=== PATIENT | female | born 1955 | race Caucasian/White ===

== ENCOUNTER 2017-11-13 05:25 | Day surgery (SDC) | payer BC ==
[~2017-11-13] VITALS: Ht 167.6 cm; Wt 54.0 kg
[2017-11-13] MEDS ORDERED: SEVOFLURANE 15 MIN GAS INH ONE (05:26)
[2017-11-13] MEDS ORDERED: ROPIVACAINE 40 MG/20 ML AMP EP ONE (05:26)
[2017-11-13] MEDS ORDERED: fentaNYL CITRATE 250 MCG/5 ML AMP IV ONE (05:26)
[2017-11-13] MEDS ORDERED: ROCURONIUM BROMIDE 10 MG/ML (ZEMURON) IV ONE (05:26)
[2017-11-13] MEDS ORDERED: ROPIVACAINE 0.2% (NAROPIN) PF SOLUTION 100 ML BOTTLE EP ONE (05:26)
[2017-11-13] MEDS ORDERED: ONDANSETRON HCL 4 MG/2 ML VIAL IVP ONE (05:26)
[2017-11-13] MEDS ORDERED: PROPOFOL 200MG/ 20ML VIAL (DIPRIVAN) IV ONE (05:26)
[2017-11-13] MEDS ORDERED: CEFAZOLIN 1 GM IVPB PREMIX 50 ML IV ONE (05:26)
[2017-11-13] MEDS ORDERED: KETOROLAC TROMETHAMINE 30 MG VIAL IVP ONE (05:26)
[2017-11-13] MEDS ORDERED: METOCLOPRAMIDE HCL 10 MG/2 ML VIAL IVP ONE (05:26)
[2017-11-13] MEDS ORDERED: LR 1,000 ML IV.SOLN IV ONE (05:26)
[2017-11-13] MEDS ORDERED: DEXAMETHASONE SOD PHOSPHATE 4 MG/ML VIAL IVP ONE (05:26)
[2017-11-13] MEDS ORDERED: MIDAZOLAM HCL 5 MG/5 ML VIAL IVP ONE (05:26)
[2017-11-13] MEDS ORDERED: LR 1,000 ML IV SCH (08:40)
[2017-11-13] MEDS ORDERED: MEPERIDINE HCL/PF 25 MG/ML DISP.SYRIN IVP PRN (08:45)
[2017-11-13] MEDS ORDERED: HYDROmorphone 1 MG INJ. 1 MG/ML AMPUL IVP PRN (08:45)
[2017-11-13] MEDS ORDERED: HYDROmorphone 2 MG/ML VIAL IVP PRN ×2 (08:45)
[2017-11-13] MEDS ORDERED: PROMETHAZINE HCL 25 MG/ML AMP IM PRN (09:45)
[2017-11-13] MEDS ORDERED: ONDANSETRON HCL 4 MG/2 ML VIAL IVP PRN (09:45)
[2017-11-13] MEDS ORDERED: OXYCODONE/ACETAMINOPHEN 5-325 TABLET PO PRN (09:45)
[2017-11-13] MEDS ORDERED: OXYCODONE/ACETAMINOPHEN 5-325 TABLET ONE (11:52)
[2017-11-13 12:43] VITALS: BP_SYST 130
== END 2017-11-13 14:30 | disposition home or self-care (01) ==
LOC: SDS 05:25 → SMU 05:25 → SDS 14:30
PROVIDERS: ATTEND Obstetrics & Gynecology
DX: D25.9 Leiomyoma of uterus, unspecified (principal); G43.909 Migraine, unspecified, not intractable, without status migrainosus; I10 Essential (primary) hypertension; K21.9 Gastro-esophageal reflux disease without esophagitis; E78.00 Pure hypercholesterolemia, unspecified; M19.90 Unspecified osteoarthritis, unspecified site
CPT/HCPCS: 36415; 58571; 80048; 81000; 85025; 86886; 86900; 86901; 88307; J0690; J1100; J1885; J2250; J2405; J2704; J2765; J2795 ×2; J3010; J7120; E0190